=== PATIENT | male | born 1955 | race Caucasian/White ===

== ENCOUNTER 2023-08-11 07:54 | Emergency (ER) | payer OTHER ==
[2023-08-11] MEDS ORDERED: Ondansetron PF 4 MG/2 ML Vial ONE (08:33)
[2023-08-11] MEDS ORDERED: Morphine 4 MG/ML VIAL ONE ×2 (08:33→09:08)
== END 2023-08-11 10:46 | disposition home or self-care (01) ==
LOC: ERS 07:54
DX: S43.015A Anterior dislocation of left humerus, initial encounter (principal); E78.2 Mixed hyperlipidemia; I10 Essential (primary) hypertension; I48.91 Unspecified atrial fibrillation; Z79.01 Long term (current) use of anticoagulants; W01.0XXA Fall on same level from slipping, tripping and stumbling without subsequent striking against object, initial encounter; Y92.89 Other specified places as the place of occurrence of the external cause
CPT/HCPCS: 29105; 70450; 94760; 96374; 96375; 96376; J2270; J2405